=== PATIENT | female | born 1935 ===

== ENCOUNTER 2016-09-30 18:42 | Emergency (ER) | payer SELFPAY ==
[~2016-09-30] VITALS: Ht 157.5 cm; Wt 65.0 kg
[2016-09-30 18:49] VITALS: Ht 157.5 cm; Wt 65.0 kg
== END 2016-09-30 22:01 | disposition left against medical advice (07) ==
LOC: E/R 18:42
DX: Z53.21 Procedure and treatment not carried out due to patient leaving prior to being seen by health care provider (principal)